=== PATIENT | female | born 1970 | race American Indian/Alaskan Native ===

== ENCOUNTER 2022-05-11 11:12 | Emergency (ER) | payer OTHER ==
[2022-05-11 13:58] VITALS: BP 111/72
[2022-05-11 14:19] LABS: Bilirubin,Urine NEG (Negative); Blood,Urine NEG (Negative); Color,Urine Yellow (Yellow); Protein,Urine <15 mg/dL mg/dL (Negative); Urobilinogen,Urine < 2.0 mg/dL (<2.0)
--- NOTE | 2022-05-11 14:21 | Cat Scan Report ---
CT head/brain wo con INDICATION / CLINICAL INFORMATION: 51 years Female; WEAKNESS RIGHT FACE; NOW NORMAL. TECHNIQUE: Routine CT head without contrast. All CT scans at this location are performed using CT dos e reduction for ALARA by means of automated exposure control. COMPARISON: None. FINDINGS: BRAIN / INTRACRANIAL CONTENTS: The brain parenchyma appears to demonstrate appropriate attenuation fo r age. The ventricular system is within normal limits in size and configuration. There is no clear CT evidence of acute intracranial hemorrhage or significant mass effect. ORBITS: No significant abnormality of visualized orbits. SINUSES / MASTOIDS: No significant abnormality in the visualized paranasal sinuses or mastoid air naeem ls. CRANIOCERVICAL JUNCTION: No significant abnormality. ADDITIONAL FINDINGS: None. IMPRESSION: 1. There is no clear CT evidence of acute intracranial process. Signer Name: Yunior Gamez MD Signed: 05/11/2022 2:16 PM Workstation Name: [id number]
--- NOTE | 2022-05-11 14:52 | Emergency Department Report ---
ED General Adult HPI - General Chief complaint: Headache Stated complaint: HEADACHE,NAUSEA PUI?: No Time Seen by Provider: 05/11/22 13:35 Source: patient Mode of arrival: Ambulatory Limitations: No Limitations - History of Present Illness Initial comments: Ms. Zendejas is a 51-year-old female that comes to the emergency room complaining of just generalized weakness, headache and nausea. She states that she lost her job earlier in the year, started a new job and has been caring for her mother who has lung cancer. She believes a lot of her symptoms are stress related. Patient endorses the symptoms for 2-1/2-week. Patient did go to the urgent care and they gave her Toradol and Flonase and sent her home. Patient has not seen her primary care doctor. Patient does endorse a history of diabetes and hypertension. She is taking her medications which include Tresiba, lisinopril, HCTZ, metformin and Jardiance. She states that her blood sugars have been controlled. She has no polyuria, polydipsia polyphagia. Patient has no chest pain or shortness of breath. She denies fever or chills. Patient is tearful on exam. -: Gradual, week(s) Location: head Severity scale (0 -10): 3 Quality: aching Consistency: constant Improves with: none Worsens with: none Associated Symptoms: denies other symptoms Treatments Prior to Arrival: none - Related Data Allergies Allergy/AdvReac Type Severity Reaction Status Date / Time Penicillins Allergy Swelling Verified 05/11/22 17:06 Sulfa (Sulfonamide Allergy Swelling Verified 05/11/22 17:06 Antibiotics) ED Review of Systems ROS: Stated complaint: HEADACHE,NAUSEA Other details as noted in HPI Comment: All other systems reviewed and negative ED Past Medical Hx - Past Medical History Previous Medical History?: Yes Hx Hypertension: Yes Hx Diabetes: Yes - Surgical History Past Surgical History?: No - Family History Family history: no significant - Social History Smoking Status: Never Smoker Substance Use Type: None ED Physical Exam - General Limitations: No Limitations General appearance: alert, in no apparent distress - Head Head exam: Present: atraumatic, normocephalic - Eye Eye exam: Present: normal appearance - ENT ENT exam: Present: mucous membranes moist - Neck Neck exam: Present: normal inspection - Respiratory Respiratory exam: Present: normal lung sounds bilaterally. Absent: respiratory distress - Cardiovascular Cardiovascular Exam: Present: regular rate, normal rhythm. Absent: systolic murmur, diastolic murmur, rubs, gallop - GI/Abdominal GI/Abdominal exam: Present: soft, normal bowel sounds - Extremities Exam Extremities exam: Present: normal inspection - Back Exam Back exam: Present: normal inspection - Neurological Exam Neurological exam: Present: alert, oriented X3 - Psychiatric Psychiatric exam: Present: normal affect, normal mood - Skin Skin exam: Present: warm, dry, intact, normal color. Absent: rash ED Course Vital Signs 05/11/22 13:57 Pulse Rate 78 Respiratory 16 Rate Blood Pressure 111/72 [Left] O2 Sat by Pulse 100 Oximetry ED Medical Decision Making - Lab Data Result diagrams: 05/11/22 13:47 05/11/22 13:47 - Radiology Data Radiology results: report reviewed, image reviewed neg - Medical Decision Making Labs 05/11/22 05/11/22 05/11/22 13:47 13:47 13:47 WBC 4.3 L RBC 5.57 H Hgb 14.9 H Hct 46.1 H MCV 83 MCH 27 L MCHC 32 RDW 13.0 L Plt Count 277 Lymph % (Auto) 55.0 H [place] % (Auto) 4.5 Eos % (Auto) 1.7 Baso % (Auto) 1.1 Lymph # (Auto) 2.4 [place] # (Auto) 0.2 Eos # (Auto) 0.1 Baso # (Auto) 0.0 Add Manual Diff Complete Seg Neutrophils % 37.7 L Seg Neutrophils # 1.6 L Sodium 144 Potassium 3.9 Chloride 104.0 Carbon Dioxide 31 H Anion Gap 13 BUN 11 Creatinine 0.8 Estimated GFR > 60 BUN/Creatinine Ratio 14 Glucose 116 H Calcium 10.1 Total Bilirubin 0.30 Direct Bilirubin < 0.2 Indirect Bilirubin 0.1 AST 19 ALT 15 Alkaline Phosphatase 120 Troponin T < 0.010 Total Protein 7.4 Albumin 5.0 Albumin/Globulin Ratio 2.1 Lipase 37 Urine Color Urine Turbidity Urine pH Ur Specific [place] Urine Protein Urine Glucose (UA) Urine Ketones Urine Blood Urine Nitrite Urine Bilirubin Urine Urobilinogen Ur Leukocyte Esterase Urine WBC (Auto) Urine RBC (Auto) U Epithel Cells (Auto) Urine Mucus 05/11/22 13:55 WBC RBC Hgb Hct MCV MCH MCHC RDW Plt Count Lymph % (Auto) [place] % (Auto) Eos % (Auto) Baso % (Auto) Lymph # (Auto) [place] # (Auto) Eos # (Auto) Baso # (Auto) Add Manual Diff Seg Neutrophils % Seg Neutrophils # Sodium Potassium Chloride Carbon Dioxide Anion Gap BUN Creatinine Estimated GFR BUN/Creatinine Ratio Glucose Calcium Total Bilirubin Direct Bilirubin Indirect Bilirubin AST ALT Alkaline Phosphatase Troponin T Total Protein Albumin Albumin/Globulin Ratio Lipase Urine Color Yellow Urine Turbidity Clear Urine pH 6.0 Ur Specific [place] 1.035 H Urine Protein <15 mg/dl Urine Glucose (UA) >=500 Urine Ketones Neg Urine Blood Neg Urine Nitrite Neg Urine Bilirubin Neg Urine Urobilinogen < 2.0 Ur Leukocyte Esterase Neg Urine WBC (Auto) 1.0 Urine RBC (Auto) 1.0 U Epithel Cells (Auto) 2.0 Urine Mucus 1+ Vital Signs 05/11/22 13:57 Pulse Rate 78 Respiratory 16 Rate Blood Pressure 111/72 [Left] O2 Sat by Pulse [address] noted. Blood sugar normal. Patient given a liter of normal saline. She was also given Toradol for her headache. Troponin negative. WBC negative. No leukocytosis. No fever or chills. UA noted. Patient reassured and given opportunity to verbalize her concerns regarding her mother. I do suspect a lot of her symptoms are stress related. She appears tired and is tearful every time I interview her. Patient is taking p.o. She is ambulatory. Patient being discharged home with discharge plan of care including diet, activity, medications and follow-up. - Differential Diagnosis dka/hypoglycemia/infection/stress Critical care attestation.: If time is entered above; I have spent that time in minutes in the direct care of this critically ill patient, excluding procedure time. ED Disposition Clinical Impression: Hx of diabetes mellitus, Headache Disposition: HOME / SELF CARE / HOMELESS Is pt being admited?: No Does the pt Need Aspirin: No Condition: Stable Instructions: Type 2 Diabetes Mellitus, Diagnosis, Adult Additional Instructions: STAY WELL HYDRATED FOLLOW UP WITH PCP IN 48 HOURS FOR RECHECK DIABETIC DIET OVER THE COUNTER PAIN MEDS FOR PAIN ACTIVITY TOLERATED REST Referrals: GARRET BLISS MD [Staff Physician] - 3-5 Days Forms: Work/School Release Form(ED) Time of Disposition: 17:32
[2022-05-11 14:56] LABS: Mucus,Urine 1+ /HPF
[2022-05-11 15:44] LABS: Hematocrit 46.1 % (30.3-42.9); Hemoglobin 14.9 gm/dl (10.1-14.3); Mean Corpuscular HGB Conc 32 % (30-34); Mean Corpuscular Volume 83 fl (79-97); Platelet Count 277 K/mm3 (140-440); Red Blood Count 5.57 M/mm3 (3.65-5.03)
[2022-05-11 15:45] LABS: Basophils % (Auto) 1.1 % (0.0-1.8); Eosinophils # (Auto) 0.1 K/mm3 (0.0-0.4); Eosinophils % (Auto) 1.7 % (0.0-4.3); Lymphocytes # (Auto) 2.4 K/mm3 (1.2-5.4); Monocytes # (Auto) 0.2 K/mm3 (0.0-0.8); Monocytes % (Auto) 4.5 % (0.0-7.3)
[2022-05-11] MEDS ORDERED: IBUPROFEN 800 MG TAB PO SCH (16:01)
[2022-05-11 16:26] LABS: Alanine Aminotransferase 15 units/L (7-56); BUN/Creatinine Ratio 14; Blood Urea Nitrogen 11 mg/dL (7-17); Calcium 10.1 mg/dL (8.4-10.2); Hemolysis Index 18
[2022-05-11 16:43] LABS: Bilirubin,Direct < 0.2 mg/dL (0-0.2)
[2022-05-11] MEDS ORDERED: SODIUM CHLORIDE 0.9% 1000 ML 1,000 ML IV ONE (17:15)
[2022-05-11] MEDS ORDERED: KETOROLAC 30 MG/1 ML INJ IV ONE (17:30)
--- NOTE | 2022-05-13 08:51 | Electrocardiograph Report ---
Test Date: 2022-05-11 Test Time: 14:31:10 Pat Name: ERIC JAIMES Department: Room: Gender: F [employer]ating Installer: RAYMON : 1970 Requested By: CATRACHO AGUERO Order Number: [id number] Reading MD: Shailesh Bee Measurements Intervals [place] Rate: 81 P: 80 [place]: 188 QRS: 80 QRSD: 75 T: 53 QT: 369 QTc: 429 Interpretive Statements Sinus rhythm Probable left atrial enlargement No previous ECG available for comparison Electronically Signed On 05-13-2022 8:51:11 EDT by Shailesh Bee
== END 2022-05-11 19:18 | disposition home or self-care (01) ==
LOC: ED 11:12
DX: R51.9 Headache, unspecified (principal); E11.9 Type 2 diabetes mellitus without complications; I10 Essential (primary) hypertension; Z88.0 Allergy status to penicillin; Z88.2 Allergy status to sulfonamides
CPT/HCPCS: 36415; 70450; 80048; 80076; 81001; 83690; 84484; 85025; 93005; 96361; 96374; 99284; J1885; J7030